=== PATIENT | female | born 1995 | race African-American/Black ===

== ENCOUNTER 2022-09-02 00:26 | Day surgery (SDC) | payer MEDICARE, MEDICAID, SELFPAY ==
[2022-08-31 15:58] VITALS: BMI 56.1
--- NOTE | 2022-08-31 16:03 | PC.NURSE ---
Report to the Outpatient Waiting Room, entrance under the green pavilion located off [facility], at time 0630 on date 09/02/22. Planned Procedure Time: 0830. Time changes happen often and if your time is changed the preop area will call you the afternoon before. - You and your visitor will be asked to self-screen and do not enter if you have any COVID symptoms. - Only one visitor is requested with a max of two and NO children visitors are allowed at this time. - The patient visitor may be requested to leave or wait in car when not with patient due to distancing restrictions. - A mask is optional within the hospital. Patients may have clear liquids (water, carbonated beverages, clear teas, apple juice) until 3 hours prior to surgery with a maximum of 20 ounces. - No food from midnight until time of surgery - Infants may have breast milk until 4 hours before surgery, infant formula 6 hours prior to surgery. - Children will be allowed to drink immediately following surgery. If applicable, please bring a bottle or sippy cup to assist with drinking. Juice, water, soda, and popsicles are readily available. For infants on formula, please bring formula the day of surgery. Pacifiers are allowed. Take the following medications with a SIP of water the morning of surgery: ALPRAZOLAM/CLONAZEPAM NEEDED, DEPAKOTE, FLUOXETINE, LEVOTHYROXINE, ZIPRASIDONE Medications to discontinue per physician: VITAMINS/SUPPLEMENTS Date to take last dose: NO MORE UNTIL AFTER SURGERY Please no make-up, nail hebrew, hairspray, perfume, deodorant, or body powder the day of surgery. No jewelry (including any body piercings) or valuables the day of surgery, leave them at home. Please take a shower or bath the night before, or the morning of, surgery with an antibacterial soap. Wear comfortable, loose fitting clothing. Children are encouraged to wear pajamas. - Jewelry must be removed prior to entering the operating room. Rings and piercings that are not removed may be cut off. - The hospital will not accept responsibility for valuables. - Please leave all valuables, including medications, at home the day of surgery. If you are going home after surgery, a licensed charter driver must drive you home. - NO public transportation without another adult if you receive anesthesia. - We recommend that an adult stay with you for 24 hours following discharge. - We also recommend that you do not drive, make important decision, drink alcoholic beverages, or take any drugs that were not prescribed by your health care provider for at least 24 hours after your discharge time. For Pediatric surgeries, we recommend two adults accompany the child home. Follow any additional instructions given to you from your surgeon. If you or anyone in your household have experienced Covid symptoms in the past week, please notify your surgeon or the nurse liaison at the phone number below for possible testing. Telephone instructions given to MOTHER Korey FORTUNE and asked if any additional questions and then verbalized understanding. Patient advised to call surgeon office or pre surgery nurse liaison [phone] if any additional questions.
--- NOTE | 2022-09-02 07:40 | WPDANESEPPF ---
Anes - Initial Pre Proc Eval Procedure: Operation Date: 09/02/22 08:30 Proposed Procedures p Vaginal Examination Under Anesthesia, Pap Smear, Insertion of Intrauterine Device - Fransisco Robledo MD Date/Time: 09/02/22 07:40 Surgeon: Fransisco Robledo MD Pre Op Diagnosis: Irr Bleeding, Autistic Disorder Patient Data Age: 27 Gender: F Height: 1.6 m Weight: 143.8 kg Allergies Allergy/AdvReac Type Severity Reaction Status Date / Time No Known Allergies Allergy Verified 08/31/22 15:53 Home Medications Medication Instructions Recorded Confirmed Type calcium carbonate 400 mg calcium 400 mg PO DAILY 04/09/22 08/31/22 History (1,000 mg) chewable tablet (Tums Ultra) cholecalciferol (vitamin D3) 125 125 mcg PO DAILY 04/09/22 08/31/22 History mcg (5,000 unit) capsule clonazepam 0.5 mg tablet (Klonopin) 0.5 mg PO QHS 04/09/22 08/31/22 History divalproex 125 mg tablet,delayed 125 mg PO BID 04/09/22 08/31/22 History release (Depakote) levothyroxine 50 mcg capsule 50 mcg PO DAILY 04/09/22 08/31/22 History melatonin 5 mg capsule 5 mg PO HS 04/09/22 08/31/22 History metformin 500 mg tablet 500 mg PO BID 04/09/22 08/31/22 History montelukast 10 mg tablet 10 mg PO HS 04/09/22 08/31/22 History (Singulair) polyethylene glycol 3350 17 gram 17 g PO Q48H 04/09/22 08/31/22 History oral powder packet (Miralax) ziprasidone HCl 40 mg capsule 40 mg PO BID 04/09/22 08/31/22 History alprazolam 1 mg tablet 1 mg PO DAILY PRN Anxiety 08/31/22 08/31/22 History fluoxetine 60 mg tablet 60 mg PO BID 08/31/22 08/31/22 History Patient hx anesthesia problems: none Family hx anesthesia problems: other (slow to awaken) Results Review: All pre-operative results and documents have been reviewed as part of the pre-operative evaluation. [facility] Past Medical History Medical History Surveillance for Depo-Provera contraception Family History Family History Grandparent Diabetes mellitus Hypertension Cerebrovascular accident Family history of lung cancer Mother Diabetes mellitus Hypertension Father Hypertension Other Family history of malignant neoplasm of breast Social History Social History Smoking status: Never smoker Second hand tobacco smoke exposure: Yes Alcohol intake: never Substance use: never Substance use type: does not use Living arrangements: with family Spiritual care concerns: No Anes - Eval Final PreProcedure Day of Procedure 09/02/22 07:40 Patient weight: morbidly obese Heart: regular rate and rhythm Lungs: clear to auscultation Airway: Mallampati scale class IV and special considerations poor opening Neurological: other (alert autistic) Last oral intake: >/= 8 hours ASA classification: III Emergent: no Anesthetic plan: proceed Anesthesia type and monitoring: general GIVS and standard monitoring Results Review: All pre-operative results and documents have been reviewed as part of the pre-operative evaluation. Informed Consent: The patient's anesthetic plan and its attendant risks and benefits were discussed with the patient/family/POA. Questions were solicited and answers provided to the satisfaction of the patient/family/POA.
[2022-09-02] MEDS: MIDAZOLAM HCL ORAL SYRUP (*CRX) 10 MG/5 ML UDC PO (08:00)
--- NOTE | 2022-09-02 08:06 | PM.IMHP ---
H&P: [facility] History of Present Illness Date/Time: 09/02/22 08:06 Chief Complaint: Exam under anesthesia and IUD placement Narrative: Patient is a 27 y/o G0 with severe autism. She is nonverbal. She has a history of heavy periods. She has been getting Depo-Provera which has helped the menorrhagia. It is becoming increasingly more difficult for her to cooperate with family to get her in for the depo injections. Other long acting options like Nexplanon not optimal due to the concern for her to pick at the implant. She is also due for pap smear. Review of Systems Review of Systems: All systems reviewed & are unremarkable except as noted in HPI and below Constitutional: Constitutional: Reports no additional constitutional complaints Eyes: Eyes: Reports no additional eye complaints Cardiovascular: Cardiovascular: Reports no additional cardiovascular complaints Respiratory: Respiratory: Reports no additional respiratory complaints Gastrointestinal: Gastrointestinal: Reports no additional gastrointestinal complaints Genitourinary: Genitourinary: Reports no additional female genitourinary complaints and Reports as per HPI Integumentary/Breasts: Skin/Breast: Reports system reviewed and no additional complaints, except as docu Neurologic: Reports system reviewed and no additional complaints, except as documented Psychiatric: Psychiatric: Reports no additional psychiatric complaints Hematologic/Lymphatic: Hematologic/Lymphatic: Reports no additional hematologic/lymphatic complaints [facility] Past Medical History Medical History Surveillance for Depo-Provera contraception Family History Family History Grandparent Diabetes mellitus Hypertension Cerebrovascular accident Family history of lung cancer Mother Diabetes mellitus Hypertension Father Hypertension Other Family history of malignant neoplasm of breast Social History Social History Smoking status: Never smoker Second hand tobacco smoke exposure: Yes Alcohol intake: never Substance use: never Substance use type: does not use Living arrangements: with family Spiritual care concerns: No Meds Home Medications and Allergies Home Medications Medication Instructions Recorded Confirmed Type calcium carbonate 400 mg calcium 400 mg PO DAILY 04/09/22 08/31/22 History (1,000 mg) chewable tablet (Tums Ultra) cholecalciferol (vitamin D3) 125 125 mcg PO DAILY 04/09/22 08/31/22 History mcg (5,000 unit) capsule clonazepam 0.5 mg tablet (Klonopin) 0.5 mg PO QHS 04/09/22 09/02/22 History divalproex 125 mg tablet,delayed 125 mg PO BID 04/09/22 09/02/22 History release (Depakote) levothyroxine 50 mcg capsule 50 mcg PO DAILY 04/09/22 09/02/22 History melatonin 5 mg capsule 5 mg PO HS 04/09/22 08/31/22 History metformin 500 mg tablet 500 mg PO BID 04/09/22 08/31/22 History montelukast 10 mg tablet 10 mg PO HS 04/09/22 08/31/22 History (Singulair) polyethylene glycol 3350 17 gram 17 g PO Q48H 04/09/22 08/31/22 History oral powder packet (Miralax) ziprasidone HCl 40 mg capsule 40 mg PO BID 04/09/22 09/02/22 History alprazolam 1 mg tablet 1 mg PO DAILY PRN Anxiety 08/31/22 09/02/22 History fluoxetine 60 mg tablet 60 mg PO BID 08/31/22 09/02/22 History Allergies Allergy/AdvReac Type Severity Reaction Status Date / Time No Known Allergies Allergy Verified 09/02/22 08:03 Exam Const: General: comfortable and no acute distress Eyes: General: appearance normal, both eyes and all related structures Neck: Neck: normal visual inspection Resp: Effort & Inspection: normal respiratory effort Auscultation: clear to auscultation bilaterally Cardio: Rate: regular rate Rhythm: regular rhythm GI: Inspection: normal to inspection GI Palp: No abdominal tenderness
--- NOTE | 2022-09-02 08:13 | WPDHPUPDATE1 ---
History and Physical Update Update Date/Time: 09/02/22 08:13 History and Physical has been reviewed, including an updated exam of the patient. There are NO changes in the patient's condition. Risks, benefits, and alternatives have been discussed and questions answered. Patient agrees to proceed with procedure.
[2022-09-02 08:28] VITALS: BP 130/71; PULSE 91; RESP 14; TEMP 36.3; O2SAT 98
[2022-09-02 08:50] VITALS: BP 132/97; PULSE 117; RESP 22; TEMP 37.1; O2SAT 92
[2022-09-02 08:58] VITALS: BP 107/62; PULSE 114; RESP 15; O2SAT 96
[2022-09-02 09:00] VITALS: BP 131/96; PULSE 113; RESP 15
--- NOTE | 2022-09-02 09:27 | W.PM.PROC2 ---
Procedure Note - Detailed Date of Procedure 09/02/22 Pre-op Diagnosis Irr Bleeding, Autistic Disorder Post-op Diagnosis Same Procedure Performed Examine under anesthesia, pap smear, Mirena IUD insertion. Surgeon Fransisco Robledo MD Anesthesia MAC Indications Autistic patient with history of menorrhagia Findings Normal breast exam, normal bimanual examine, no adnexal masses. uterine size normal. Uterus sound to 6.5cm Mirena IUD [facility] [id number], Lot # [id number] Exp Mar 2023 Description of Procedure After informed consent was obtained with her caregiver patient was taken to the operating room. Mask anesthesia was given. She was placed in her high lithotomy position. Speculum was inserted. Pap smear was performed. Single-tooth tenaculum placed on the anterior lip of the cervix after the cervix was prepped with Betadine. The uterus was sound to 6-1/2 cm the IUD was inserted in normal fashion. The IUD strings were cut. Tenaculum removed hemostasis noted. Speculum was removed. A bimanual exam was performed in the uterus and adnexa appeared normal no adnexal masses uterus normal size. Patient tolerated procedure well and was taken to recovery. Estimated Blood Loss 3 Drains No Packing No Pathology Other (Pap smear will be sent out from office.) Complications No immediate complications Condition Stable Disposition Same day [facility] Billing Surgery - Charge Forward: Surgery Billing
== END 2022-09-02 09:35 | disposition home or self-care (01) ==
PROVIDERS: PCP Internal Medicine; Visit Provider Obstetrics & Gynecology
PROC: 0U5B8ZZ Destruction of Endometrium, Via Natural or Artificial Opening Endoscopic (ICD-10-PCS; CPT 58563; principal; 2022-09-02 08:30)
DX: N92.0 Excessive and frequent menstruation with regular cycle (principal); F84.0 Autistic disorder; Z30.430 Encounter for insertion of intrauterine contraceptive device; Z79.84 Long term (current) use of oral hypoglycemic drugs; E66.01 Morbid (severe) obesity due to excess calories; Z68.43 Body mass index [BMI] 50.0-59.9, adult
CPT/HCPCS: 58300; 57410; A9270; J2250